=== PATIENT | male | born 1980 | race African-American/Black ===

== ENCOUNTER 2020-08-16 13:11 | Emergency (ER) | payer OTHER ==
--- NOTE | 2020-08-16 13:15 | NUR ---
Called No response
--- NOTE | 2020-08-16 13:30 | NUR ---
Called No response
--- NOTE | 2020-08-16 14:13 | NUR ---
Called No respons. Claudia
== END 2020-08-16 14:16 | disposition left against medical advice (07) ==
LOC: ER 13:17
DX: Z75.3 Unavailability and inaccessibility of health-care facilities (principal)

== ENCOUNTER 2020-08-16 14:18 | Emergency (ER) | payer OTHER ==
[~2020-08-16] VITALS: Ht 185.4 cm; Wt 95.3 kg
--- NOTE | 2020-08-16 14:32 | NUR ---
"Im just feeling at the end of my rope right now, Homeless/No job", "I just feel like jumping in front of cars". to ER bed 10, hooked to monitor, changed to hosp gown, warm blanket provided, patient aao X 4. suicide precaution applied. sitter at bedside for safety. Dr Chaidez at bedside
[2020-08-16 15:13] LABS: BASOPHILS # (AUTO) 0.1 /CMM (0.0-0.2); BASOPHILS % (AUTO) 0.9 % (0.0-2.0); HEMATOCRIT 43 % (39-51); HEMOGLOBIN 14.3 g/dL (13.5-17.5); LYMPHOCYTES # (AUTO) 1.7 /CMM (0.8-4.8); LYMPHOCYTES % (AUTO) 22.7 % (20.0-44.0); MEAN CORPUSCULAR HGB CONC 34 g/dl (31.0-36.0); MEAN CORPUSCULAR VOLUME 87 fL (80-96); MONOCYTES # (AUTO) 0.9 /CMM (0.1-1.30); NEUTROPHILS # (AUTO) 4.7 /CMM (1.8-8.9); NEUTROPHILS % (AUTO) 63.4 % (43.0-81.0); PLATELET COUNT (AUTO) 310 /CMM (150-450); WHITE BLOOD COUNT (AUTO) 7.4 K/uL (4.3-11.0)
[2020-08-16 15:17] LABS: CALCIUM, SERUM 8.9 mg/dL (8.5-10.1); CREATININE 1.1 mg/dL (0.6-1.3); POTASSIUM 4.2 mmol/L (3.5-5.1)
[2020-08-16 15:23] LABS: ALBUMIN 3.7 g/dL (3.4-5.0); BILIRUBIN,DIRECT 0.1 mg/dL (0.0-0.2); BILIRUBIN,TOTAL 0.2 mg/dL (0.2-1.0)
--- NOTE | 2020-08-16 15:36 | NUR ---
patient not able to provide urine sample at this time. aware
--- NOTE | 2020-08-16 16:07 | NUR ---
urine sample collected and sent to lab
[2020-08-16 16:10] LABS: BILIRUBIN,URINE Negative (NEGATIVE); COLOR,URINE YELLOW (YELLOW); LEUKOCYTE ESTERASE ,URINE Negative (NEGATIVE); NITRITE, URINE Negative (NEGATIVE); PROTEIN,URINE Negative (NEGATIVE); UGLUCOSE Negative (NEGATIVE)
[2020-08-16 16:20] LABS: BACTERIA,URINE Rare /HPF (None Seen); RBC,URINE 0-2 /HPF (0-2); SQUAMOUS EPITHELIAL CELL,UR Rare /HPF (None Seen); WBC,URINE 0-2 /HPF (0-3)
--- NOTE | 2020-08-16 17:59 | NUR ---
RAPID COVID SWAB DONE AND SENT TO LAB
--- NOTE | 2020-08-16 18:54 | NUR ---
REPORT GIVEN TO ELAINE VILLALOBOS FOR [place]
[2020-08-16 20:38] LABS: ACETAMINOPHEN < 2 ug/ml (10-30)
--- NOTE | 2020-08-16 20:53 | NUR ---
FACESHEET AND CLINICAL FAXED TO [facility] INTAKE FOR VOLUNTARY PSYCH ADMISSION.
[2020-08-16 22:26] VITALS: BP 141/72
--- NOTE | 2020-08-16 22:27 | NUR ---
PT RESTING COMFORTABLY. VSS.
--- NOTE | 2020-08-16 22:43 | NUR ---
TRANSFER INFORMATION: PT ACCEPTED AT [facility] ACCEPTING MD PRINCE PT WILL GO TO UNIT 2 PHONE # FOR REPORT
--- NOTE | 2020-08-16 22:47 | NUR ---
[facility] ETA 23:30
--- NOTE | 2020-08-16 23:22 | NUR ---
REPORT GIVEN TO
--- NOTE | 2020-08-16 23:32 | NUR ---
PT TRANSFERED TO [facility].
== END 2020-08-16 23:34 ==
LOC: ER 14:23
DX: R45.851 Suicidal ideations (principal); Z59.0 Homelessness; R03.0 Elevated blood-pressure reading, without diagnosis of hypertension; Z20.822 Contact with and (suspected) exposure to COVID-19
CPT/HCPCS: 36415; 80048; 80076; 80299; 80307; 80320; 81001; 85025; 87426; 99285; C9803; G0480